=== PATIENT | male | born 1965 | race Two or more races ===

== ENCOUNTER 2025-05-26 14:15 | Emergency (ER) | payer MEDICAID ==
[~2025-05-26] VITALS: Ht 162.6 cm; Wt 93.9 kg
[2025-05-26] MEDS ORDERED: LIDOCAINE 1%-EPI 1:100,000 20 ML VIAL ONE (14:34)
[2025-05-26] MEDS ORDERED: SULFAMETH/TRIMETH 800/160 MG 1 UDTAB TABLET ONE (14:49)
[2025-05-26] MEDS ORDERED: CEPHALEXIN MONOHYDRATE 500 MG CAPSULE PO ONE (14:49)
[2025-05-26] MEDS: CEPHALEXIN MONOHYDRATE 500 MG CAPSULE PO ONE (14:55)
[2025-05-26] MEDS: SULFAMETH/TRIMETH 800/160 MG 1 UDTAB TABLET PO ONE (14:55)
[2025-05-26] MEDS ORDERED: CEPH-570 PO (15:23)
[2025-05-26] MEDS ORDERED: SULF1TAB48 PO (15:23)
[2025-05-26] MEDS ORDERED: LIDOCAINE 1% INJ 50 ML MDV IJ ONE (15:28)
[2025-05-26] MEDS: LIDOCAINE HCL/PF 1% 30 ML VIAL TP ONE (15:40)
[2025-05-26 16:11] VITALS: BP 119/81; TEMP 98.7; O2SAT 99
== END 2025-05-26 16:12 | disposition home or self-care (01) ==
LOC: ER 14:23
DX: L02.212 Cutaneous abscess of back [any part, except buttock and flank] (principal); I10 Essential (primary) hypertension; F41.9 Anxiety disorder, unspecified; E86.0 Dehydration; E11.9 Type 2 diabetes mellitus without complications
CPT/HCPCS: 99284; 10060; J3490 ×2

== ENCOUNTER 2025-05-28 10:32 | Emergency (ER) | payer MEDICAID ==
[~2025-05-28] VITALS: Ht 162.6 cm; Wt 117.9 kg
[~2025-05-28 10:32] MED LIST: CEPH-570 PO; SULF1TAB48 PO
[2025-05-28 11:48] VITALS: BP 115/69; TEMP 98.4; O2SAT 99
== END 2025-05-28 11:49 | disposition home or self-care (01) ==
LOC: ER 10:35
DX: Z48.817 Encounter for surgical aftercare following surgery on the skin and subcutaneous tissue (principal); I10 Essential (primary) hypertension